=== PATIENT | female | born 1960 | race Asian ===

== ENCOUNTER 2023-08-25 07:11 | Day surgery (SDC) | payer OTHER ==
[~2023-08-25] VITALS: Ht 152.4 cm; Wt 39.5 kg
[~2023-08-25 07:11] MED LIST: SODIUM CHLORIDE 0.9% 1,000 ML ONE
[2023-08-25] MEDS ORDERED: MIDAZOLAM HCL 2 MG/2 ML VIAL ONE (07:42)
[2023-08-25] MEDS ORDERED: FentaNYL CITRATE PF 100 MCG/2 ML VIAL ONE (07:42)
[2023-08-25] MEDS: SODIUM CHLORIDE 0.9% 1,000 ML IV ONE (08:06)
[2023-08-25] MEDS ORDERED: FAMO20 PO (09:00)
[2023-08-25 09:30] VITALS: PULSE 94; RESP 18; O2SAT 100
[2023-08-25] MEDS ORDERED: MethylPREDNISolone SOD SUCC 125 MG/2 ML VIAL ONE (10:06)
[2023-08-25] MEDS: MethylPREDNISolone SOD SUCC 125 MG/2 ML VIAL IVP ONE (10:08)
[2023-08-25] MEDS ORDERED: LIDOCAINE 4% 50 ML SOLUTION ONE (12:00)
[2023-08-25] MEDS ORDERED: LIDOCAINE 2% 11 ML JELLY ONE (12:00)
[2023-08-25] MEDS ORDERED: BENZOCAINE 20% 50 MCG/SPRAY 57 GM ONE (12:00)
[2023-08-25] MEDS ORDERED: LEVALBUTEROL 1.25 MG/0.5 ML NEB SOLUTION NEB ONE (12:00)
[2023-08-25] MEDS ORDERED: ALBUTEROL SULFATE 2.5 MG/0.5 ML NEB SOLUTION NEB ONE (12:00)
== END 2023-08-25 12:00 | disposition home or self-care (01) ==
LOC: SURGERY 07:11
PROVIDERS: ATTEND Internal Medicine Critical Care Medicine
DX: R05.3 Chronic cough (principal); R04.2 Hemoptysis; J38.4 Edema of larynx; B37.0 Candidal stomatitis; J84.10 Pulmonary fibrosis, unspecified; J98.8 Other specified respiratory disorders; J98.09 Other diseases of bronchus, not elsewhere classified; M47.814 Spondylosis without myelopathy or radiculopathy, thoracic region; Z85.21 Personal history of malignant neoplasm of larynx
CPT/HCPCS: 87206; 87101; 87220; 87070; 88108; 31623; 31624; 94640; 71045; 87015; J3010; J2250; J2919; Q9967; J7030; J7613; Z7610